=== PATIENT | male | born 1975 | race Caucasian/White ===

== ENCOUNTER 2017-01-14 18:36 | Emergency (ER) | payer OTHER ==
[~2017-01-14] VITALS: Ht 177.8 cm; Wt 76.0 kg
[2017-01-14 18:52] VITALS: BP 181/96; PULSE 112; RESP 12; TEMP 98.3; O2SAT 99
--- NOTE | 2017-01-14 18:59 | PD ---
HPI Chief Complaint: Psychiatric Symptoms Time Seen by Provider: 18:57 Travel History International Travel<30 days: No Contact w/Intl Traveler<30days: No Traveled to known affect area: No History of Present Illness HPI 41-year-old male presents to the emergency Department under [place] act by local police for depression, suicidal ideation. The patient states that he uses methamphetamine. He states that he does injected as well as smoking. Patient states that he has "hit rock bottom". He states he has a lot going on and he feels suicidal. When asked if he has a plan he states "any way I can do it". Patient denies any attempt at this point to hurt himself. He denies any chronic medical problems or taking any medications. He denies hearing voices or having hallucinations. He states he drinks occasionally. He also uses tobacco. Patient denies any medical complaints at this time. [facility] Social History Alcohol Use: Yes Tobacco Use: Yes Substance Use: Yes (methamphetamine) Allergies-Medications (Allergen,Severity, Reaction): Coded Allergies: No Known Allergies (Unverified , 01/14/17) Review of Systems Except as stated in HPI: all other systems reviewed are Neg Physical Exam Narrative GENERAL: Well-nourished, well-developed male patient, ambulatory. Afebrile. SKIN: Focused skin assessment warm/dry. HEAD: Normocephalic. Atraumatic. EYES: No scleral icterus. No injection or drainage. NECK: Supple, trachea midline. No JVD or lymphadenopathy. CARDIOVASCULAR: Regular rate and rhythm without murmurs, gallops, or rubs. RESPIRATORY: Breath sounds equal bilaterally. No accessory muscle use. Lung sounds are clear to auscultation. GASTROINTESTINAL: Abdomen soft, non-tender, nondistended. MUSCULOSKELETAL: No cyanosis, or edema. PSYCHIATRIC: No delusional thought processes. No hallucinations. Data Data Last Documented VS Vital Signs Date Time Temp Pulse Resp B/P Pulse Ox O2 Delivery O2 Flow Rate FiO2 01/14/17 18:52 98.3 112 12 181/96 99 Orders Complete Blood Count With Diff (01/14/17 18:56) Comprehensive Metabolic Panel (01/14/17 18:56) Psych Screen (01/14/17 18:56) Drug Screen, Random Urine (01/14/17 18:56) Alcohol (Ethanol) (01/14/17 18:56) Labs Laboratory Tests Test 01/14/17 19:00 White Blood Count 8.7 TH/MM3 Red Blood Count 4.73 MIL/MM3 Hemoglobin 14.2 GM/DL Hematocrit 41.7 % Mean Corpuscular Volume 88.1 FL Mean Corpuscular Hemoglobin 30.0 PG Mean Corpuscular Hemoglobin 34.1 % Concent Red Cell Distribution Width 14.5 % Platelet Count 355 TH/MM3 Mean Platelet Volume 7.1 FL Neutrophils (%) (Auto) 58.7 % Lymphocytes (%) (Auto) 34.9 % Monocytes (%) (Auto) 5.0 % Eosinophils (%) (Auto) 0.5 % Basophils (%) (Auto) 0.9 % Neutrophils # (Auto) 5.1 TH/MM3 Lymphocytes # (Auto) 3.0 TH/MM3 Monocytes # (Auto) 0.4 TH/MM3 Eosinophils # (Auto) 0.0 TH/MM3 Basophils # (Auto) 0.1 TH/MM3 CBC Comment DIFF FINAL Differential Comment Sodium Level 140 MEQ/L Potassium Level 3.8 MEQ/L Chloride Level 107 MEQ/L Carbon Dioxide Level 26.5 MEQ/L Anion Gap 7 MEQ/L Blood Urea Nitrogen 13 MG/DL Creatinine 0.84 MG/DL Estimat Glomerular Filtration 102 ML/MIN Rate Random Glucose 99 MG/DL Calcium Level 9.4 MG/DL Total Bilirubin 0.4 MG/DL Aspartate Amino Transf 10 U/L (AST/SGOT) Alanine Aminotransferase 23 U/L (ALT/SGPT) Alkaline Phosphatase 88 U/L Total Protein 7.9 GM/DL Albumin 4.4 GM/DL Ethyl Alcohol Level LESS THAN 3 MG/DL MDM Medical Decision Making Medical Screen Exam Complete: Yes Emergency Medical Condition: Yes Medical Record Reviewed: Yes Differential Diagnosis Substance abuse versus depression versus as mood disorder versus bipolar disorder Narrative Course 41-year-old male presents to the emergency Department a [place] act by local police for depression, suicidal ideation. He reports abusing methamphetamine. CBC, CMP, alcohol level, urine drug screen are ordered and pending. CBC is unremarkable. CMP shows no acute abnormality. Alcohol level is less than 3. UDS is pending. Patient is medically cleared for psychiatric screening and disposition. Mental health screening discussed with the patient. Psychiatric screen ordered. Diagnosis Primary Impression: Substance abuse Additional Impression: Depression Qualified Code: F32.9 - Depression, unspecified depression type Additional Instructions: Patient is medically cleared for psychiatric screening and disposition. Condition: Stable ShortySis Jan 14, 2017 18:59
[2017-01-14 19:34] LABS: AUTOMATED NEUTROPHIL # 5.1 TH/MM3 (1.8-7.7); BASOPHIL # 0.1 TH/MM3 (0-0.2); BASOPHIL % 0.9 % (0.0-2.0); EOSINOPHIL % 0.5 % (0.0-4.0); HEMATOCRIT 41.7 % (39.0-51.0); HEMO FLAGS DIFF FINAL; LYMPH % 34.9 % (9.0-44.0); MEAN CELL VOLUME 88.1 FL (80.0-100.0); MEAN CORPUSCULAR HGB CONC 34.1 % (32.0-36.0); NEUT % 58.7 % (16.0-70.0); PLATELET COUNT 355 TH/MM3 (150-450); RED BLOOD COUNT 4.73 MIL/MM3 (4.50-5.90); RED CELL DISTRIBUTION WIDTH 14.5 % (11.6-17.2); WHITE BLOOD COUNT 8.7 TH/MM3 (4.0-11.0)
[2017-01-14 19:46] LABS: BLOOD UREA NITROGEN 13 MG/DL (7-18)
[2017-01-14 19:47] LABS: ANION GAP 7 MEQ/L (5-15); AST (GOT) 10 U/L (15-37); BICARBONATE 26.5 MEQ/L (21.0-32.0); CHLORIDE 107 MEQ/L (98-107); GLOMERULAR FILTRATION RATE 102 ML/MIN (>89); POTASSIUM 3.8 MEQ/L (3.5-5.1); SODIUM (NA) 140 MEQ/L (136-145)
[2017-01-14 19:50] LABS: ALKALINE PHOSPHATASE 88 U/L (45-117); ALT (GPT) 23 U/L (12-78); TOTAL BILIRUBIN ADULT 0.4 MG/DL (0.2-1.0)
[2017-01-14 20:26] VITALS: BP 181/89; PULSE 95; RESP 16; O2SAT 100
[2017-01-14 22:15] VITALS: BP 171/93; PULSE 92; RESP 18; TEMP 98.3; O2SAT 96
[2017-01-15 00:02] LABS: AMPHETAMINE, URINE POS (NEG); BARBITURATES, URINE NEG (NEG); COCAINE, URINE NEG (NEG)
[2017-01-15 06:21] VITALS: BP 125/64; PULSE 82; RESP 18; O2SAT 100
[2017-01-15 10:20] VITALS: BP 144/83; PULSE 88; RESP 18; TEMP 98.5; O2SAT 99
[2017-01-15 14:49] VITALS: BP 141/76; PULSE 83; RESP 18; TEMP 98.6; O2SAT 99
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
[2017-01-15 15:47] VITALS: BP 141/76; TEMP 98.6
== END 2017-01-15 16:36 | disposition home or self-care (01) ==
LOC: NEPC 18:36 → NEPJ 01-15 16:36
DX: F19.10 Other psychoactive substance abuse, uncomplicated (principal); F32.9 Major depressive disorder, single episode, unspecified; Z72.0 Tobacco use
CPT/HCPCS: 80053; 80307; 85025; 99284